=== PATIENT | male | born 1930 | race Caucasian/White ===

== ENCOUNTER 2016-11-05 19:39 | Emergency (ER) | payer MEDICARE, OTHER ==
[~2016-11-05] VITALS: Ht 167.6 cm; Wt 51.0 kg
[2016-11-05 20:31] LABS: BLOOD UREA NITROGEN 36 mg/dL (7-18)
[2016-11-05] MEDS ORDERED: HYDROcodone/APAP 5/325 TABLET ONE (21:53)
[2016-11-05] MEDS ORDERED: HYDROcodone/APAP 5/325 TABLET PO ONE (22:00)
[2016-11-05] MEDS ORDERED: BACITRACIN ZINC OINT 500U/GM, 0.9 GM ONE (22:09)
[2016-11-05 22:34] VITALS: BP 141/90
== END 2016-11-05 22:32 | disposition home or self-care (01) ==
LOC: ED 22:26
DX: S61.011A Laceration without foreign body of right thumb without damage to nail, initial encounter (principal); S50.01XA Contusion of right elbow, initial encounter; I10 Essential (primary) hypertension; E11.9 Type 2 diabetes mellitus without complications; R07.89 Other chest pain; W18.30XA Fall on same level, unspecified, initial encounter; Y93.89 Activity, other specified; Y92.410 Unspecified street and highway as the place of occurrence of the external cause; Y99.9 Unspecified external cause status
CPT/HCPCS: 12002; 36415; 71010; 80048; 85025; 85610; 99285